=== PATIENT | female | born 1930 | race Caucasian/White ===

== ENCOUNTER → 2016-09-06 | Outpatient (CLI) | payer OTHER ==
[~2016-09-06] MED LIST: ALL180 PO; CALC-51 PO; CENTTAB41 PO; CHOLTAB3 PO; FSM70 PO; PLMIN200 INH; SENN-65 PO
--- NOTE | 2016-09-07 13:08 | MAMMOGRAPHY REPORT ---
BILATERAL DIGITAL SCREENING MAMMOGRAM WITH CAD: 09/06/2016 CLINICAL HISTORY: Routine screening. TECHNIQUE: Bilateral CC, MLO and left XCCL views were obtained. Current study was also evaluated wi th a Computer Aided Detection (CAD) system. COMPARISON: Comparison is made to exams dated: 09/04/2015 mammogram, 09/02/2014 mammogram, 08/30/2013 mammogram, 08/09/2012 mammogram, 08/09/2011 mammogram, and 08/05/2010 mammogram - [facility] enter. BREAST COMPOSITION: The tissue of both breasts is almost entirely fatty. FINDINGS: There is a stable mixed density fatty and calcified mass in the upper outer posterior lef t breast. There are other scattered benign-appearing calcifications bilaterally. Mild vascular osmin cification in the breasts. No suspicious mass, architectural distortion or cluster of microcalcific ations is seen. IMPRESSION: ACR BI-RADS CATEGORY 1: NEGATIVE There is no mammographic evidence of malignancy. A 1 year screening mammogram is recommended. The p atient will receive written notification of the results. Approximately 10% of breast cancers are not detected with mammography. A negative mammographic repor t should not delay biopsy if a clinically suggestive mass is present. Patricia Collins M.D. ay/:09/06/2016 16:16:01 Aerial Tram Operator: Julian SIDDIQUI)(Earnest), [facility] letter sent: Normal 1/2 BI-RADS Code: ACR BI-RADS Category 1: Negative
== END | disposition home or self-care (01) ==
LOC: C.MAMM 10:10
PROVIDERS: ATTEND Nurse Practitioner Family
DX: Z12.31 Encounter for screening mammogram for malignant neoplasm of breast (principal)

== ENCOUNTER → 2016-11-15 | Outpatient (CLI) | payer OTHER ==
--- NOTE | 2016-11-15 10:25 | DIAGNOSTIC IMAGING REPORT ---
LEFT KNEE 1 OR 2 VIEWS ROUTINE CLINICAL HISTORY: Left knee pain. COMPARISON: Left knee radiographs November 21, 2013. FINDINGS: Alignment of the left knee is anatomic. No fracture or suspicious lesion is likely identified. There is no left knee joint effusion. There is minimal spurring of the patella at the insertion of the quadriceps. The joint spaces are preserved. IMPRESSION: Unremarkable left knee radiographs. Electronically signed by: Myron Baumann M.D. 11/15/2016 10:24 AM Dictated Date/Time: 11/15/2016 10:23 AM
== END | disposition home or self-care (01) ==
LOC: C.RAD1850 10:06
PROVIDERS: ATTEND Nurse Practitioner Family
DX: M25.562 Pain in left knee (principal)

== ENCOUNTER → 2017-01-18 | Outpatient (CLI) | payer OTHER ==
[2017-01-18 17:26] LABS: HEMATOCRIT 39.9 % (37-47); MEAN CELL VOLUME 90.7 fL (80-100); MEAN CORPUSCULAR HGB CONC 33.1 g/dl (32-36); MEAN PLATELET VOLUME 9.6 fL (7.4-10.4); PLATELET COUNT 241 K/uL (130-400); WHITE BLOOD COUNT 5.68 K/uL (4.8-10.8)
[2017-01-18 17:36] LABS: ALT/SGPT 16 U/L (12-78); BLOOD UREA NITROGEN 19 mg/dl (7-18); BUN/CREATININE RATIO 21.2 (10-20); CALCIUM 10.1 mg/dl (8.5-10.1); CARBON DIOXIDE 30 mmol/L (21-32); CHLORIDE 106 mmol/L (98-107); CHOLESTEROL 241 mg/dl (0-200); GLUCOSE 86 mg/dl (70-99); POTASSIUM 3.8 mmol/L (3.5-5.1); SODIUM 141 mmol/L (136-145)
[2017-01-18 17:39] LABS: ALB/GLOB RATIO 1.1 (0.9-2); ALKALINE PHOSPHATASE 66 U/L (45-117); AST/SGOT 22 U/L (15-37); CHOLESTEROL/HDL RATIO 3.5; HDL CHOLESTEROL 69 mg/dl; LDL CHOLESTEROL CALCULATED 141 mg/dl; TRIGLYCERIDES 154 mg/dl (0-150); VERY LOW DENSITY LIPOPROT CALC 31 mg/dl
== END | disposition home or self-care (01) ==
LOC: C.LABPBG 11:55
PROVIDERS: ATTEND Family Medicine
DX: M81.0 Age-related osteoporosis without current pathological fracture (principal); E78.00 Pure hypercholesterolemia, unspecified; N18.3 Chronic kidney disease, stage 3 (moderate)

== ENCOUNTER → 2017-02-15 | Outpatient (CLI) | payer OTHER | END | disposition home or self-care (01) | LOC: C.MAMM 14:59 | PROVIDERS: ATTEND Family Medicine | DX: M81.0 Age-related osteoporosis without current pathological fracture (principal) ==

== ENCOUNTER → 2017-05-03 | Outpatient (CLI) | payer OTHER ==
[2017-05-03 12:12] LABS: BLOOD UREA NITROGEN 24 mg/dl (7-18); BUN/CREATININE RATIO 25.8 (10-20); CALCIUM 9.1 mg/dl (8.5-10.1); CARBON DIOXIDE 31 mmol/L (21-32); CHLORIDE 104 mmol/L (98-107); CREATININE 0.91 mg/dl (0.60-1.20); GLUCOSE 93 mg/dl (70-99); POTASSIUM 3.5 mmol/L (3.5-5.1); SODIUM 141 mmol/L (136-145)
== END | disposition home or self-care (01) ==
LOC: C.LABPBG 09:16
PROVIDERS: ATTEND Family Medicine
DX: I10 Essential (primary) hypertension (principal)

== ENCOUNTER 2017-12-10 09:43 | Emergency (ER) | payer OTHER ==
[~2017-12-10] VITALS: Ht 162.6 cm; Wt 75.4 kg
[2017-12-10 09:45] VITALS: TEMP 36.7; Ht 162.6 cm; Wt 75.4 kg
--- NOTE | 2017-12-10 09:52 | EMERGENCY ROOM VISIT NOTE ---
History Report prepared by Susan: Sherrill Cook Under the Supervision of: Dr. Cece Lehman D.O. First contact with patient: 09:49 Chief Complaint: ED VAG BLEEDING Stated Complaint: VAGINAL BLEEDING History of Present Illness The patient is an 87 year old female who presents to the Emergency Room with complaints of intermittent vaginal bleeding that started this morning. The patient reports she woke up this morning and noticed blood on her night gown and when she went to the bathroom she noticed there was blood on her underwear. The patient states when she urinated and wiped herself there was blood on the bathroom tissue. She notes she also noticed there was a blood spot on the floor as she was brushing her teeth. She states she has had intermittent burning with urination before but nothing was unusual this morning. The patient notes she was operated on for hemorrhoids several years ago. She reports she has a history of difficulty with moving her bowel movements. The patient denies abdominal pain, back pain, diarrhea, fevers, or chills. She states she had polyp removed several years ago but denies any other gynecological history. She reports she still has her uterus and ovaries. The patient's daughters report she does not eat a lot. The patient states she has a history of vertigo. Source of History: patient Onset: this morning Position: other (vagina) Timing: intermittent Associated Symptoms: + urinary symptoms, No fevers, No chills, No abdominal pain, No back pain, No diarrhea Review of Systems See HPI for pertinent positives & negatives. A total of 10 systems reviewed and were otherwise negative. Past Medical & Surgical Medical Problems: (1) Asthma Family History Diabetes mellitus FHx: cancer Social History Smoking Status: Never Smoker Marital Status: Current/Historical Medications Scheduled Alendronate Sodium (Fosamax), 70 MG PO WK Budesonide (Inhalation) (Pulmicort Flexhaler), 2 PUFFS INH BID Losartan Potassium (Cozaar), 25 MG PO DAILY Allergies Coded Allergies: Aspirin (Verified Allergy, Mild, HIVES/SWELLING, 12/10/17) Sulfa Drugs (Verified Allergy, Mild, RASH, 12/10/17) Prednisone (Verified Allergy, Unknown, RASH, 12/10/17) Tramadol (Verified Allergy, Unknown, UNKNOWN, 12/10/17) Fluticasone (Verified Adverse Reaction, Unknown, HOARSENESS, 12/10/17) Salmeterol (Verified Adverse Reaction, Unknown, RAPID HR, 12/10/17) Physical Exam Vital Signs Date Time Temp Pulse Resp B/P (MAP) Pulse Ox O2 Delivery O2 Flow Rate FiO2 12/10/17 13:33 68 16 167/76 98 12/10/17 12:34 55 16 192/85 97 Room Air 12/10/17 11:01 58 16 175/73 96 Room Air 12/10/17 09:45 36.7 62 18 216/77 97 Room Air Physical Exam GENERAL: alert, well appearing, well nourished, no distress, non-toxic EYE EXAM: normal conjunctiva, PERRL and EOM's grossly intact OROPHARYNX: no exudate, no erythema, lips, buccal mucosa, and tongue normal and mucous membranes are moist NECK: supple, no nuchal rigidity, no adenopathy, non-tender LUNGS: Clear to auscultation. Normal chest wall mechanics HEART: no murmurs, S1 normal and S2 normal ABDOMEN: abdomen soft, non-tender, normo-active bowel sounds, no masses, no rebound or guarding. BACK: Back is symmetrical on inspection and there is no deformity, no midline tenderness, no CVA tenderness. SKIN: no rashes and no bruising UPPER EXTREMITIES: upper extremities are grossly normal. LOWER EXTREMITIES: No pitting edema. NEURO EXAM: Normal sensorium, cranial nerves II-XII grossly intact, normal speech, no gross weakness of arms, no gross weakness of legs. PELVIC: No blood at the urethral meatus, no blood along labia, no obvious vaginal bleeding however on attempts at speculum exam friable appearing tissue noted along the inferior vaginal vault. Patient could not tolerate full speculum exam to visualize entire vault or cervix due to pain. RECTAL: No acute hemorrhoids, no anal fissure, no stool in vault, stool guaiac negative. Medical Decision & Procedures ER Provider Diagnostic Interpretation: Radiology results have been interpreted by the radiologist and reviewed by me. ULTRASOUND OF THE PELVIS CLINICAL HISTORY: Vaginal bleeding. COMPARISON STUDY: Pelvic CT dated 01/04/2008. TECHNIQUE: Real-time, grayscale, and color flow sonography of the pelvis is performed transabdominally. Images are reviewed in the transverse and longitudinal planes. Note that the examination is suboptimal without the endovaginal component. FINDINGS: Uterus: The uterus is normal in size and echotexture, measuring 5.7 x 2.9 x 4.2 cm. Endometrium: The endometrium is normal in appearance, and the endometrial stripe is normal in thickness measuring up to 0.5 cm. Ovaries: The ovaries were not visualized on this transabdominal examination. Pelvis: There is no free fluid in the cul-de-sac. No concerning adnexal lesion is seen. IMPRESSION: 1. No acute abnormality is identified on this transabdominal examination. 2. The endometrial stripe is prominent for age measuring up to 5 mm. Nonemergent follow-up with the patient's manager clinic is recommended. 3. The ovaries are not visualized. Electronically signed by: Christian López M.D. 12/10/2017 11:44 AM Dictated Date/Time: 12/10/2017 11:42 AM Laboratory Results 12/10/17 10:51 Red Blood Count 4.41, Mean Corpuscular Volume 89.6, Mean Corpuscular Hemoglobin 28.8, Mean Corpuscular Hemoglobin Concent 32.2, Mean Platelet Volume 9.0, Neutrophils (%) (Auto) 56.5, Lymphocytes (%) (Auto) 28.2, Monocytes (%) (Auto) 8.4, Eosinophils (%) (Auto) 5.6, Basophils (%) (Auto) 1.1, Neutrophils # (Auto) 2.62, Lymphocytes # (Auto) 1.31, Monocytes # (Auto) 0.39, Eosinophils # (Auto) 0.26, Basophils # (Auto) 0.05 12/10/17 10:51 Test 12/10/17 10:38 12/10/17 10:51 Urine Color YELLOW Urine Appearance CLEAR (CLEAR) Urine pH 6.5 (4.5-7.5) Urine Specific Lawn 1.017 (1.000-1.030) Urine Protein NEG (NEG) Urine Glucose (UA) NEG (NEG) Urine Ketones NEG (NEG) Urine Occult Blood 1+ (NEG) Urine Nitrite NEG (NEG) Urine Bilirubin NEG (NEG) Urine Urobilinogen NEG (NEG) Urine Leukocyte Esterase NEG (NEG) Urine WBC (Auto) 1-5 /hpf (0-5) Urine RBC (Auto) 5-10 /hpf (0-4) Urine Hyaline Casts (Auto) 10-30 /lpf (0-5) Urine Epithelial Cells (Auto) 20-30 /lpf (0-5) Urine Bacteria (Auto) NEG (NEG) White Blood Count 4.64 K/uL (4.8-10.8) Red Blood Count 4.41 M/uL (4.2-5.4) Hemoglobin 12.7 g/dL (12.0-16.0) Hematocrit 39.5 % (37-47) Mean Corpuscular Volume 89.6 fL (80-100) Mean Corpuscular Hemoglobin 28.8 pg (25-34) Mean Corpuscular Hemoglobin Concent 32.2 g/dl (32-36) Platelet Count 226 K/uL (130-400) Mean Platelet Volume 9.0 fL (7.4-10.4) Neutrophils (%) (Auto) 56.5 % Lymphocytes (%) (Auto) 28.2 % Monocytes (%) (Auto) 8.4 % Eosinophils (%) (Auto) 5.6 % Basophils (%) (Auto) 1.1 % Neutrophils # (Auto) 2.62 K/uL (1.4-6.5) Lymphocytes # (Auto) 1.31 K/uL (1.2-3.4) Monocytes # (Auto) 0.39 K/uL (0.11-0.59) Eosinophils # (Auto) 0.26 K/uL (0-0.5) Basophils # (Auto) 0.05 K/uL (0-0.2) RDW Standard Deviation 43.3 fL (36.4-46.3) RDW Coefficient of Variation 13.3 % (11.5-14.5) Immature Granulocyte % (Auto) 0.2 % Immature Granulocyte # (Auto) 0.01 K/uL (0.00-0.02) Anion Gap 6.0 mmol/L (3-11) Est Creatinine Clear Calc Drug Dose 44.8 ml/min Estimated GFR () 68.5 Estimated GFR (Non- 59.1 BUN/Creatinine Ratio 18.5 (10-20) Calcium Level 9.2 mg/dl (8.5-10.1) Total Bilirubin 0.5 mg/dl (0.2-1) Aspartate Amino Transf (AST/SGOT) 22 U/L (15-37) Alanine Aminotransferase (ALT/SGPT) 16 U/L (12-78) Alkaline Phosphatase 68 U/L (45-117) Total Protein 7.0 gm/dl (6.4-8.2) Albumin 3.5 gm/dl (3.4-5.0) Globulin 3.5 gm/dl (2.5-4.0) Albumin/Globulin Ratio 1.0 (0.9-2) Laboratory results per my review. Medications Administered Medications (Trade) Dose Ordered Sig/Alex Route Start Time Stop Time Status Last Admin Dose Admin Meclizine HCl (Antivert Tab) 25 mg NOW STAT PO 12/10/17 12:25 12/10/17 12:27 DC 12/10/17 12:32 25 MG ED Course 0954: The patient was evaluated in room B4B. A complete history and physical exam was performed. 1155: I updated the patient on her results. She asked for medication for her chronic vertigo. I told the patient she will need to follow up with her [facility]. 1225: Ordered Meclizine HCl 25 mg PO. 1335: Upon reevaluation, the patient is feeling better. I discussed the findings and the treatment plan with the patient. She verbalizes agreement and understanding. The patient is ready for discharge. Medical Decision Differential diagnosis: Etiologies such as ectopic , dysfunction uterine bleeding, bleeding dyscrasia, trauma, infection, as well as others were entertained. Discussed with patient risks of vaginal bleeding given age and need for follow- up with [facility]. I do not suspect hematuria, small amount of blood noted on the UA is most likely trauma from catheterization. No evidence of GI bleed or source of rectal or perianal bleeding. Patient had no recurrent bleeding while here. No abdominal pain or back pain, stable H&H, hemodynamically stable throughout. Patient well-appearing here throughout. Discussed all results with patient and daughters at bedside including need for close follow-up. Discussed symptoms to watch and return for, she verbalized understanding was agreeable with plan. Medication Reconcilliation Current Medication List: was personally reviewed by me Blood Pressure Screening Patient's blood pressure: Elevated blood pressure Blood pressure disposition: Referred to PCP Impression Primary Impression: Abnormal vaginal bleeding Scribe Attestation The scribe's documentation has been prepared under my direction and personally reviewed by me in its entirety. I confirm that the note above accurately reflects all work, treatment, procedures, and medical decision making performed by me. Departure Information Dispostion Home / Self-Care Referrals Debbie Hart DO (PCP) Patient Instructions My [facility] Additional Instructions Please call your family doctor and discuss follow-up with [facility] as a precaution giving her symptoms today and the findings on the ultrasound. Please continue your regular diet, activity, and usual medications as prescribed. Please drink plenty of water to stay well-hydrated. If you develop increased bleeding or passage of clots, develop abdominal pain, fevers or chills, vomiting, change in urine or stools, difficulty urinating, feel as though you are going to pass out, or you have any other new and concerning symptoms, please return the emergency room.
[2017-12-10] MEDS ORDERED: ALEN70TA2 PO (10:21)
[2017-12-10] MEDS ORDERED: LOSA1TAB PO (10:21)
[2017-12-10] MEDS ORDERED: BUDE180I INH (10:21)
[2017-12-10 11:02] LABS: BASO % 1.1 %; BASO ABS # 0.05 K/uL (0-0.2); EOS % 5.6 %; EOS ABS # 0.26 K/uL (0-0.5); HEMATOCRIT 39.5 % (37-47); HEMOGLOBIN 12.7 g/dL (12.0-16.0); IG# 0.01 K/uL (0.00-0.02); LYMPH % 28.2 %; LYMPH ABS # 1.31 K/uL (1.2-3.4); MEAN CELL VOLUME 89.6 fL (80-100); MEAN CORPUSCULAR HEMOGLOBIN 28.8 pg (25-34); MEAN CORPUSCULAR HGB CONC 32.2 g/dl (32-36); MONO % 8.4 %; MONO ABS # 0.39 K/uL (0.11-0.59); NEUT % 56.5 %; NEUT ABS # 2.62 K/uL (1.4-6.5); PLATELET COUNT 226 K/uL (130-400); RED CELL DISTRIBUTION WIDTH CV 13.3 % (11.5-14.5); RED CELL DISTRIBUTION WIDTH SD 43.3 fL (36.4-46.3); WHITE BLOOD COUNT 4.64 K/uL (4.8-10.8)
[2017-12-10 11:21] LABS: ALBUMIN 3.5 gm/dl (3.4-5.0); CALCIUM 9.2 mg/dl (8.5-10.1); CREATININE 0.88 mg/dl (0.60-1.20); POTASSIUM 3.6 mmol/L (3.5-5.1)
--- NOTE | 2017-12-10 11:45 | DIAGNOSTIC IMAGING REPORT ---
ULTRASOUND OF THE PELVIS CLINICAL HISTORY: Vaginal bleeding. COMPARISON STUDY: Pelvic CT dated 01/04/2008. TECHNIQUE: Real-time, grayscale, and color flow sonography of the pelvis is performed transabdominally. Images are reviewed in the transverse and longitudinal planes. Note that the examination is suboptimal without the endovaginal component. FINDINGS: Uterus: The uterus is normal in size and echotexture, measuring 5.7 x 2.9 x 4.2 cm. Endometrium: The endometrium is normal in appearance, and the endometrial stripe is normal in thickness measuring up to 0.5 cm. Ovaries: The ovaries were not visualized on this transabdominal examination. Pelvis: There is no free fluid in the cul-de-sac. No concerning adnexal lesion is seen. IMPRESSION: 1. No acute abnormality is identified on this transabdominal examination. 2. The endometrial stripe is prominent for age measuring up to 5 mm. Nonemergent follow-up with the patient's vessel master is recommended. 3. The ovaries are not visualized. Electronically signed by: Christian López M.D. 12/10/2017 11:44 AM Dictated Date/Time: 12/10/2017 11:42 AM
[2017-12-10] MEDS ORDERED: MECLIZINE HCL 25 MG TAB PO STA (12:25)
[2017-12-10 13:33] VITALS: BP 167/76; PULSE 68; O2SAT 98
== END 2017-12-10 13:34 | disposition home or self-care (01) ==
LOC: C.EDB 09:44
DX: N93.9 Abnormal uterine and vaginal bleeding, unspecified (principal); R42 Dizziness and giddiness; R03.0 Elevated blood-pressure reading, without diagnosis of hypertension; J45.909 Unspecified asthma, uncomplicated; Z88.1 Allergy status to other antibiotic agents; Z88.2 Allergy status to sulfonamides; Z88.5 Allergy status to narcotic agent; Z88.6 Allergy status to analgesic agent; Z88.8 Allergy status to other drugs, medicaments and biological substances